=== PATIENT | male | born 2000 | race Caucasian/White ===

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

== ENCOUNTER 2018-03-01 19:58 | Emergency (ER) | payer MEDICAID ==
[~2018-03-01] VITALS: Ht 188 cm; Wt 63.5 kg
[2018-03-01 20:15] VITALS: BP_SYST 112
[2018-03-01] MEDS ORDERED: NACL 0.9% 1,000 ML IV ONE (20:28)
[2018-03-01] MEDS ORDERED: ALBUTEROL SULFATE 0.083% 2.5 MG/3 ML VIAL.NEB IH ONE (20:30)
[2018-03-01] MEDS ORDERED: IPRATROPIUM BROM 0.5 MG/2.5 ML VIAL.NEB (ATROVENT) IH ONE (20:30)
[2018-03-01] MEDS ORDERED: methylPREDNISolone SOD SUCC/PF 62.5 MG/ML VIAL IVP ONE (20:30)
[2018-03-01] MEDS ORDERED: ONDANSETRON HCL 4 MG/2 ML VIAL IVP ONE (20:30)
[2018-03-01 20:49] LABS: BASOPHILS # (AUTO) 0.1 K/uL (0.0-0.2); BASOPHILS % (AUTO) 0.6 % (0.0-2.0); EOSINOPHILS # (AUTO) 0.2 K/uL (0.0-0.4); EOSINOPHILS % (AUTO) 1.3 % (0.0-4.0); HEMATOCRIT 44.2 % (36-54); HEMOGLOBIN 14.7 g/dL (14.0-18.0); LYMPHOCYTES # (AUTO) 1.9 K/uL (1.0-5.5); LYMPHOCYTES % (AUTO) 14.2 % (20.5-51.5); MEAN CORPUSCULAR HEMOGLOBIN 30 pg (27-31); MEAN CORPUSCULAR HGB CONC 33 % (32-36); MEAN CORPUSCULAR VOLUME 91 fL (79.0-98.0); MONOCYTES # (AUTO) 1.3 K/uL (0.0-1.0); MONOCYTES % (AUTO) 9.9 % (1.7-9.3); NEUTROPHILS # (AUTO) 9.5 K/uL (1.8-7.7); PLATELET COUNT (AUTO) 212 K/uL (130-430); RED BLOOD CELL COUNT(AUTO) 4.85 MIL/uL (4.2-6.2); RED CELL DISTRIBUTION WIDTH 12.4 % (9.0-15.0)
[2018-03-01 21:09] LABS: CALCIUM 9.4 mg/dL (8.4-11.0); CREATININE 0.82 mg/dL (0.55-1.30); POTASSIUM 4.2 mmol/L (3.5-5.1)
[2018-03-01 21:14] LABS: ALBUMIN 4.3 g/dL (3.4-4.8); TOTAL BILIRUBIN 1.6 mg/dL (0.0-1.0)
[2018-03-01 22:20] VITALS: BP_SYST 132
== END 2018-03-01 20:15 | disposition home or self-care (01) ==
LOC: SED 19:58
DX: J20.9 Acute bronchitis, unspecified (principal); R10.13 Epigastric pain; R03.0 Elevated blood-pressure reading, without diagnosis of hypertension; Z86.79 Personal history of other diseases of the circulatory system
CPT/HCPCS: 36415; 80053; 82150; 83690; 85025; 86710; 94640; 96361; 96374; 96375; 99284; J2405; J2930; J7030

== ENCOUNTER 2018-11-23 22:16 | Emergency (ER) | payer MEDICAID ==
[~2018-11-23] VITALS: Ht 190.5 cm; Wt 63.5 kg
[2018-11-23 22:22] VITALS: BP_SYST 130
--- NOTE | 2018-11-23 22:22 | NUR ---
Patient to ER bed 4 for evaluation. Side rails up.
--- NOTE | 2018-11-23 22:23 | NUR ---
Pt ambulatory to bed 4 c/o of diarrhea and coughing for 3 days. Pt states he has lack of appetite and when he tried eating [employer] today at 6pm, he felt "sharp pain to abdomen." Pt states he feels "my heart hurts, can you check my heart out?" No other injuries/complaints per patient or noted.
--- NOTE | 2018-11-23 22:30 | NUR ---
ER Dr. Mckenzie at bedside examining patient.
[2018-11-23] MEDS ORDERED: NACL 0.9% 1,000 ML IV ONE (22:33)
[2018-11-23] MEDS ORDERED: ASPIRIN 81 MG TAB.CHEW PO ONE (22:45)
[2018-11-23 23:06] LABS: BASOPHILS % (AUTO) 0.4 % (0.0-2.0); EOSINOPHILS # (AUTO) 0.3 K/uL (0.0-0.4); EOSINOPHILS % (AUTO) 3.5 % (0.0-4.0); HEMATOCRIT 47.1 % (36-54); HEMOGLOBIN 15.5 g/dL (14.0-18.0); LYMPHOCYTES # (AUTO) 2.9 K/uL (1.0-5.5); LYMPHOCYTES % (AUTO) 35.2 % (20.5-51.5); MEAN CORPUSCULAR HEMOGLOBIN 31 pg (27-31); MEAN CORPUSCULAR HGB CONC 33 % (32-36); MEAN CORPUSCULAR VOLUME 94 fL (79.0-98.0); MONOCYTES # (AUTO) 1.2 K/uL (0.0-1.0); MONOCYTES % (AUTO) 14.4 % (1.7-9.3); NEUTROPHILS # (AUTO) 3.8 K/uL (1.8-7.7); NEUTROPHILS % (AUTO) 46.5 % (40.0-70.0); PLATELET COUNT (AUTO) 210 K/uL (130-430); RED BLOOD CELL COUNT(AUTO) 5.01 MIL/uL (4.2-6.2); RED CELL DISTRIBUTION WIDTH 12.5 % (9.0-15.0); WHITE BLOOD COUNT (AUTO) 8.2 K/uL (4.5-11.0)
[2018-11-23 23:13] LABS: ANION GAP 10 (5-15); CALCIUM 9.1 mg/dL (8.4-11.0); CHLORIDE 102 mmol/L (98-107); CREATININE 0.89 mg/dL (0.55-1.30); GFR AFRICAN AMERICAN 140 mL/min (>90); GLUCOSE 97 mg/dL (70-99); SODIUM SERUM 139 mmol/L (136-145); UREA NITROGEN, BLOOD 9 mg/dL (8-21)
[2018-11-23] MEDS ORDERED: KETOROLAC TROMETHAMINE 30 MG VIAL IVP ONE (23:15)
--- NOTE | 2018-11-23 23:18 | NUR ---
Medication was given, pt tolerated well. No adverse reaction, will continue to monitor.
[2018-11-23 23:26] LABS: ALANINE AMINOTRANSFERASE 27 U/L (12-78); ALBUMIN 3.7 g/dL (3.4-4.8); ASPARTATE AMINOTRANSFERASE 21 U/L (10-37); TOTAL BILIRUBIN 0.8 mg/dL (0.0-1.0)
[2018-11-24 01:25] VITALS: BP_SYST 128
--- NOTE | 2018-11-24 01:25 | NUR ---
Patient given written and verbal discharge instructions and verbalizes understanding. ER MD discussed with patient the results and treatment provided. Patient in stable condition. ID arm band removed. IV catheter removed intact and dressing applied, no active bleeding. Rx of Imodium given. Patient educated on pain management and to follow up with PMD. Pain Scale 0/10.Opportunity for questions provided and answered. Medication side effect fact sheet provided.
== END 2018-11-24 01:25 | disposition home or self-care (01) ==
LOC: SED 22:16
DX: K52.9 Noninfective gastroenteritis and colitis, unspecified (principal); R03.0 Elevated blood-pressure reading, without diagnosis of hypertension; Z86.79 Personal history of other diseases of the circulatory system
CPT/HCPCS: 36415; 71045; 71250; 74021; 80053; 84484; 85025; 93005; 96361; 96374; 99284; J1885; J7030

== ENCOUNTER 2019-03-27 23:36 | Emergency (ER) | payer MEDICAID ==
[~2019-03-27] VITALS: Ht 188 cm; Wt 63.5 kg
[2019-03-27 23:40] VITALS: BP_SYST 133
--- NOTE | 2019-03-28 00:52 | NUR ---
Patient to ER bed 1 to gown for evaluation. Side rails up. Report given to Braden REHMAN.
[2019-03-28 00:58] LABS: BILIRUBIN,URINE NEGATIVE (NEGATIVE); BLOOD, URINE NEGATIVE (NEGATIVE); CLARITY/URINE CLEAR (CLEAR); COLOR,URINE YELLOW (YELLOW); GLUCOSE,URINE NEGATIVE (NEGATIVE); KETONES,URINE NEGATIVE (NEGATIVE); LEUKOCYTE ESTERASE ,URINE NEGATIVE (NEGATIVE); NITRITE, URINE NEGATIVE (NEGATIVE); PROTEIN URINE NEGATIVE (NEGATIVE); UROBILINOGEN,URINE 0.2 (0.2-1.0)
--- NOTE | 2019-03-28 01:19 | NUR ---
ER at bedside examining patient.
--- NOTE | 2019-03-28 01:25 | NUR ---
Pt BIBA to ED C/O dysuria associated with urinary frequency and groin pain for 4 days. Currently, the patient reports that his pain is a 4/10 in intensity and is described as a dull pain. He reports that the pain is localized at the right groin area. He reports that his last time he had sexual intercourse was 1 month ago. No injuries and or complaints noted. in stable condition based on pt's med Hx. No s/s of acute distress. Resting on gurney with rails up
[2019-03-28] MEDS ORDERED: cefTRIAXone 500 MG in LIDOCAINE 1%, 20 ML MDV 1 ML IM ONE (01:30)
[2019-03-28] MEDS ORDERED: AZITHROMYCIN 250 MG TABLET PO ONE (01:30)
[2019-03-28] MEDS ORDERED: AZITHROMYCIN 250 MG TABLET ONE ×2 (02:05→02:14)
[2019-03-28 02:20] VITALS: BP_SYST 133
--- NOTE | 2019-03-28 02:20 | NUR ---
Patient given written and verbal discharge instructions and verbalizes understanding. ER MD discussed with patient the results and treatment provided. Patient in stable condition. ID arm band removed. Patient educated on pain management and to follow up with PMD. Pain Scale 0/10 Opportunity for questions provided and answered.
== END 2019-03-28 02:20 | disposition home or self-care (01) ==
LOC: SED 23:36
DX: N39.0 Urinary tract infection, site not specified (principal); R03.0 Elevated blood-pressure reading, without diagnosis of hypertension; Z86.79 Personal history of other diseases of the circulatory system
CPT/HCPCS: 81003; 96372; 99283; J0696; Q0144

== ENCOUNTER 2019-04-07 21:00 | Emergency (ER) | payer MEDICAID ==
[~2019-04-07] VITALS: Ht 190.5 cm; Wt 63.5 kg
[2019-04-07 21:07] VITALS: BP_SYST 121
--- NOTE | 2019-04-07 21:10 | NUR ---
Pt c/o abdominal pain and diarrhea x 1 day, but presents with concern of having an STD. Pt states that he was dx and tx [facility] Pt c/o a white sore to gumline behind upper left back molar and yellow penile discharge. Denies drainage from mouth or throat, denies burning urinations.
--- NOTE | 2019-04-07 21:10 | NUR ---
Patient to ER bed 05 to gown for evaluation. Side rails up.
--- NOTE | 2019-04-07 21:24 | NUR ---
ER Dr. Ramirez at bedside examining patient.
[2019-04-07] MEDS ORDERED: cefTRIAXone 250 MG VIAL IM ONE (21:30)
[2019-04-07] MEDS ORDERED: AZITHROMYCIN 250 MG TABLET PO ONE (21:30)
--- NOTE | 2019-04-07 22:30 | NUR ---
Denies c/o pain or discomfort, no needs verbalized.
[2019-04-07 23:06] VITALS: BP_SYST 118
--- NOTE | 2019-04-07 23:06 | NUR ---
Patient given written and verbal discharge instructions and verbalizes understanding. ER MD discussed with patient the results and treatment provided. Patient in stable condition. ID arm band removed. Rx of Doxycycline given. Patient educated on pain management and to follow up with PMD. Pain Scale 0/10. Opportunity for questions provided and answered. Medication side effect fact sheet provided.
[2019-04-10 02:18] LABS: CHLAMYDIA TRACHOMATIS NAA Negative (Negative); NEISSERIA GONORRHOEAE NAA Negative (Negative)
== END 2019-04-07 23:06 | disposition home or self-care (01) ==
LOC: SED 21:00
DX: R10.30 Lower abdominal pain, unspecified (principal); Z86.79 Personal history of other diseases of the circulatory system
CPT/HCPCS: 87491; 87591; 96372; 99283; J0696; Q0144

== ENCOUNTER 2019-04-21 15:41 | Emergency (ER) | payer MEDICAID ==
[~2019-04-21] VITALS: Ht 188 cm; Wt 63.5 kg
[2019-04-21 15:51] VITALS: BP_SYST 111
[2019-04-21] MEDS ORDERED: cefTRIAXone 250 MG in LIDOCAINE 1%, 20 ML MDV 0.9 ML IM ONE (16:45)
[2019-04-21] MEDS ORDERED: AZITHROMYCIN 250 MG TABLET PO ONE (16:45)
[2019-04-21 16:56] LABS: BILIRUBIN,URINE NEGATIVE (NEGATIVE); CLARITY/URINE CLEAR (CLEAR); COLOR,URINE YELLOW (YELLOW); GLUCOSE,URINE NEGATIVE (NEGATIVE); KETONES,URINE NEGATIVE (NEGATIVE); LEUKOCYTE ESTERASE ,URINE NEGATIVE (NEGATIVE); NITRITE, URINE NEGATIVE (NEGATIVE); PH,URINE 6.5 (5.0-8.0); PROTEIN URINE NEGATIVE (NEGATIVE); UROBILINOGEN,URINE 0.2 (0.2-1.0)
[2019-04-21 17:19] LABS: BLOOD, URINE TRACE (NEGATIVE)
[2019-04-21 17:22] LABS: BACTERIA,URINE FEW /HPF (None Seen); MUCUS,URINE 1+ /LPF (None Seen); RBC,URINE 0-3 /HPF (0-3); WBC,URINE 0-3 /HPF (0-3)
[2019-04-21 18:30] VITALS: BP_SYST 110
[2019-04-24 11:22] LABS: CHLAMYDIA TRACHOMATIS NAA Negative (Negative); NEISSERIA GONORRHOEAE NAA Negative (Negative)
== END 2019-04-21 18:30 | disposition home or self-care (01) ==
LOC: SED 15:41
DX: I86.1 Scrotal varices (principal); Z11.3 Encounter for screening for infections with a predominantly sexual mode of transmission; R03.0 Elevated blood-pressure reading, without diagnosis of hypertension; Z86.79 Personal history of other diseases of the circulatory system
CPT/HCPCS: 76870; 81000; 87491; 87591; 96372; 99284; J0696; J2001; Q0144

== ENCOUNTER 2019-08-11 17:17 | Emergency (ER) | payer MEDICAID ==
[~2019-08-11] VITALS: Ht 188 cm; Wt 67.1 kg
[2019-08-11 17:21] VITALS: BP_SYST 112
--- NOTE | 2019-08-11 17:23 | NUR ---
PLACED IN BED 6
--- NOTE | 2019-08-11 17:30 | NUR ---
Patient arrived via POV, AAOx4, and ambulatory with limping gait. Patient states he was playing football with his 2 little brothers and he twisted his ankle in an inward motion. States no pop heard or felt. Patient states pain is to left medial ankle, no bruising or deformity noted. Patient states pain radiates to arch of foot, to heel. Patient has +2 PT and DP pulses. Capillary refill <3 seconds. Will continue to follow up and monitor.
--- NOTE | 2019-08-11 17:34 | NUR ---
SUSIE Carrera examining patient.
[2019-08-11] MEDS ORDERED: IBUPROFEN 600 MG TABLET PO ONE (18:00)
[2019-08-11 19:00] VITALS: BP_SYST 112
--- NOTE | 2019-08-11 19:00 | NUR ---
Patient given written and verbal discharge instructions and verbalizes understanding. ER MD discussed with patient the results and treatment provided. Patient in stable condition. ID arm band removed. Rx of Motrin given. Patient educated on pain management and to follow up with PMD. Pain Scale 3/10. Opportunity for questions provided and answered. Medication side effect fact sheet provided.
== END 2019-08-11 19:00 | disposition home or self-care (01) ==
LOC: SED 17:17
DX: S93.402A Sprain of unspecified ligament of left ankle, initial encounter (principal); W21.01XA Struck by football, initial encounter; Y93.61 Activity, american tackle football; Y92.89 Other specified places as the place of occurrence of the external cause; Y99.8 Other external cause status
CPT/HCPCS: 99283; 99284

== ENCOUNTER 2019-09-19 21:33 | Emergency (ER) | payer MEDICAID ==
[~2019-09-19] VITALS: Ht 188 cm; Wt 67.1 kg
[2019-09-19 21:35] VITALS: BP_SYST 136
--- NOTE | 2019-09-19 22:05 | NUR ---
Patient to ER bed 2 to gown for evaluation. Side rails up. Report given to ESTEFANIA REHMAN(REGISTRY).
--- NOTE | 2019-09-19 22:10 | NUR ---
RECIEVED PT AAOX4, 19 YO W/ C/O A BUG BITE TO RIGHT PALM AT THUMB AREA, W/ C/O PAIN 08/06. MOTHER AT BEDSIDE, PENDING TO BE SEEN BY .
[2019-09-19] MEDS ORDERED: DIPHENHYDRAMINE HCL 50 MG CAPSULE PO ONE (22:15)
[2019-09-19] MEDS ORDERED: PREDNISONE 20 MG TABLET PO ONE (22:15)
[2019-09-19] MEDS ORDERED: FAMOTIDINE 20 MG TABLET PO ONE (22:15)
--- NOTE | 2019-09-19 22:15 | NUR ---
SEEN BY MD AT BEDSIDE.
[2019-09-19] MEDS ORDERED: PREDNISONE 20 MG TABLET ONE (22:51)
--- NOTE | 2019-09-19 23:24 | NUR ---
Patient given written and verbal discharge instructions and verbalizes understanding. ER MD discussed with patient the results and treatment provided. Patient in stable condition. ID arm band removed. Rx of given. Patient educated on pain management and to follow up with PMD. Pain Scale 0/10. Opportunity for questions provided and answered. Medication side effect fact sheet provided.
[2019-09-19 23:25] VITALS: BP_SYST 118
== END 2019-09-19 23:25 | disposition home or self-care (01) ==
LOC: SED 21:33
DX: T63.301A Toxic effect of unspecified spider venom, accidental (unintentional), initial encounter (principal); Y92.89 Other specified places as the place of occurrence of the external cause
CPT/HCPCS: 99284; J7512; Q0163

== ENCOUNTER 2023-11-07 15:45 | Emergency (ER) | payer MEDICAID, OTHER ==
[~2023-11-07] VITALS: Ht 188 cm; Wt 81.6 kg
[2023-11-07 16:22] VITALS: BP_SYST 141; PULSE 67; RESP 18; TEMP 98.3; O2SAT 94
[2023-11-07] MEDS ORDERED: IBUP-1969 PO (16:28)
[2023-11-07 17:51] VITALS: BP_SYST 137; PULSE 67; RESP 18; TEMP 98.3; O2SAT 94
== END 2023-11-07 17:02 | disposition home or self-care (01) ==
LOC: SED 15:45
DX: S76.211A Strain of adductor muscle, fascia and tendon of right thigh, initial encounter (principal); X50.0XXA Overexertion from strenuous movement or load, initial encounter; Y93.66 Activity, soccer; Y92.89 Other specified places as the place of occurrence of the external cause; Y99.8 Other external cause status
CPT/HCPCS: 99282

== ENCOUNTER 2023-11-22 13:11 | Emergency (ER) | payer MEDICAID, OTHER ==
[~2023-11-22] VITALS: Ht 188 cm; Wt 84.4 kg
[~2023-11-22 13:11] MED LIST: IBUP-1969 PO
[2023-11-22 13:16] VITALS: BP_SYST 128; PULSE 70; RESP 17; TEMP 97.9; O2SAT 97
[2023-11-22 13:52] LABS: BASOPHILS % (AUTO) 0.6 % (0.0-2.0); EOSINOPHILS # (AUTO) 0.2 K/uL (0.0-0.4); EOSINOPHILS % (AUTO) 2.7 % (0.0-4.0); HEMATOCRIT 43.7 % (36-54); HEMOGLOBIN 14.9 g/dL (14.0-18.0); LYMPHOCYTES # (AUTO) 2.3 K/uL (1.0-5.5); LYMPHOCYTES % (AUTO) 38.1 % (20.5-51.5); MEAN CORPUSCULAR HEMOGLOBIN 30 pg (27-31); MEAN CORPUSCULAR HGB CONC 34 % (32-36); MEAN CORPUSCULAR VOLUME 88 fL (79.0-98.0); MONOCYTES # (AUTO) 0.6 K/uL (0.0-1.0); MONOCYTES % (AUTO) 9.5 % (1.7-9.3); NEUTROPHILS # (AUTO) 2.9 K/uL (1.8-7.7); NEUTROPHILS % (AUTO) 49.1 % (40.0-70.0); PLATELET COUNT (AUTO) 247 K/uL (130-430); RED BLOOD CELL COUNT(AUTO) 4.95 MIL/uL (4.2-6.2); RED CELL DISTRIBUTION WIDTH 13.6 % (9.0-15.0); WHITE BLOOD COUNT (AUTO) 5.9 K/uL (4.8-10.8)
[2023-11-22 14:07] LABS: ANION GAP 7 (5-15); CALCIUM 9.5 mg/dL (8.4-11.0); CARBON DIOXIDE 29 mmol/L (23-29); CHLORIDE 102 mmol/L (98-107); CREATININE 0.98 mg/dL (0.55-1.30); GFR AFRICAN AMERICAN 120 mL/min (>90); GFR NON AFRICAN-AMERICAN 99 mL/min (>90); GLUCOSE 78 mg/dL (74-106); POTASSIUM 4.2 mmol/L (3.5-5.1); SODIUM SERUM 138 mmol/L (136-145); UREA NITROGEN, BLOOD 10 mg/dL (8-21)
[2023-11-22] MEDS ORDERED: OMEP20CA15 PO (14:40)
[2023-11-22 15:40] VITALS: BP_SYST 128; PULSE 70; RESP 17; TEMP 97.9; O2SAT 97
== END 2023-11-22 15:27 | disposition home or self-care (01) ==
LOC: SED 13:11
DX: K20.90 Esophagitis, unspecified without bleeding (principal); R07.9 Chest pain, unspecified; Z79.899 Other long term (current) drug therapy
CPT/HCPCS: 36415; 71045; 80048; 84484; 85025; 85379; 99284; 99285

== ENCOUNTER 2024-05-24 23:34 | Emergency (ER) | payer MEDICAID, OTHER ==
[~2024-05-24] VITALS: Ht 188 cm; Wt 83.9 kg
[~2024-05-24 23:34] MED LIST changes: +OMEP20CA15 PO
[2024-05-24 23:38] VITALS: BP_SYST 137; PULSE 69; RESP 18; TEMP 98.4; O2SAT 99
[2024-05-24 23:59] LABS: BASOPHILS # (AUTO) 0.1 K/uL (0.0-0.2); BASOPHILS % (AUTO) 0.6 % (0.0-2.0); EOSINOPHILS # (AUTO) 0.2 K/uL (0.0-0.4); EOSINOPHILS % (AUTO) 2.2 % (0.0-4.0); HEMOGLOBIN 14.7 g/dL (14.0-18.0); LYMPHOCYTES % (AUTO) 47.5 % (20.5-51.5); MEAN CORPUSCULAR HEMOGLOBIN 30 pg (27-31); MEAN CORPUSCULAR HGB CONC 35 % (32-36); MEAN CORPUSCULAR VOLUME 87 fL (79.0-98.0); MONOCYTES # (AUTO) 0.7 K/uL (0.0-1.0); MONOCYTES % (AUTO) 8.3 % (1.7-9.3); NEUTROPHILS # (AUTO) 3.5 K/uL (1.8-7.7); NEUTROPHILS % (AUTO) 41.4 % (40.0-70.0); PLATELET COUNT (AUTO) 273 K/uL (130-430); RED BLOOD CELL COUNT(AUTO) 4.82 MIL/uL (4.2-6.2); RED CELL DISTRIBUTION WIDTH 13.3 % (9.0-15.0); WHITE BLOOD COUNT (AUTO) 8.5 K/uL (4.8-10.8)
[2024-05-25] MEDS ORDERED: iohexoL 350 mgI/mL, 100 ML INFUS..BTL IV ONE (00:18)
[2024-05-25 00:19] LABS: ALANINE AMINOTRANSFERASE 32 U/L (12-78); ALBUMIN 4.1 g/dL (3.4-4.8); ANION GAP 7 (5-15); ASPARTATE AMINOTRANSFERASE 19 U/L (10-37); CARBON DIOXIDE 27 mmol/L (23-29); CHLORIDE 105 mmol/L (98-107); GFR AFRICAN AMERICAN 87 mL/min (>90); GLUCOSE 99 mg/dL (74-106); POTASSIUM 3.6 mmol/L (3.5-5.1); SODIUM SERUM 139 mmol/L (136-145); TOTAL BILIRUBIN 0.5 mg/dL (0.0-1.0); TOTAL PROTEIN, SERUM 7.9 g/dL (6.4-8.3); UREA NITROGEN, BLOOD 14 mg/dL (8-21)
[2024-05-25] MEDS: MAG-AL HYDROX/SIMETH 30 ML UDC PO ONE (00:21)
[2024-05-25] MEDS: FAMOTIDINE PF 20 MG/2 ML VIAL IVP ONE (00:21)
[2024-05-25 00:29] LABS: GFR NON AFRICAN-AMERICAN 71 mL/min (>90)
[2024-05-25] MEDS: MORPHINE 2 MG/ML INJ. SYRINGE IVP ONE (01:48)
[2024-05-25 03:00] VITALS: BP_SYST 114; PULSE 61; RESP 16; TEMP 97.1; O2SAT 98
== END 2024-05-25 03:08 | disposition home or self-care (01) ==
LOC: SED 23:34
DX: K22.4 Dyskinesia of esophagus (principal); R07.9 Chest pain, unspecified
CPT/HCPCS: 99285; 71275; 80053; 85025; 84484; 36415; 96374; 96375; Q9967; J3490; J2270

== ENCOUNTER 2024-06-14 01:07 | Emergency (ER) | payer OTHER, MEDICAID ==
[~2024-06-14] VITALS: Ht 188 cm; Wt 83.9 kg
[2024-06-14 01:23] VITALS: BP_SYST 117; PULSE 74; RESP 16; TEMP 97.6; O2SAT 97
[2024-06-14] MEDS ORDERED: METR-154 PO (02:06)
[2024-06-14] MEDS: KETOROLAC TROMETHAMINE 60 MG/2 ML VIAL IM ONE (02:19)
[2024-06-14 02:26] VITALS: BP_SYST 117; PULSE 74; RESP 16; TEMP 97.6; O2SAT 97
== END 2024-06-14 02:28 | disposition home or self-care (01) ==
LOC: SED 01:07
DX: R19.7 Diarrhea, unspecified (principal); R14.0 Abdominal distension (gaseous); R10.84 Generalized abdominal pain; Z79.899 Other long term (current) drug therapy; Z79.2 Long term (current) use of antibiotics
CPT/HCPCS: 99283; 96372; J1885